=== PATIENT | male | born 1965 | race African-American/Black ===

== ENCOUNTER 2017-04-10 11:59 | Inpatient (IN) | payer OTHER ==
[2017-04-10 13:40] VITALS: BMI 19.9
--- NOTE | 2017-04-10 18:03 | HP ---
CIWA Score - CIWA Score Nausea/Vomitin-Mild Nausea/No Vomiting Muscle Tremors: 4-Moderate,w/Arms Extend Anxiety: 4-Mod. Anxious/Guarded Agitation: 4-Moderately Restless Paroxysmal Sweats: 1-Minimal Palms Moist Orientation: 0-Oriented Tacttile Disturbances: 0-None Auditory Disturbances: 0-None Visual Disturbances: 0-None Headache: 0-None Present CIWA-Ar Total Score: 14 Admission ROS BHS - HPI Chief Complaint: withdrawal sx Allergies/Adverse Reactions: Allergies Allergy/AdvReac Type Severity Reaction Status Date / Time No Known Allergies Allergy Verified 04/10/17 16:20 History of Present Illness: 52 years old male with long history of alcohol cocaine dependence has hypertension last medication "months" ago bp 161/100 begin norvasc 5 mg bid denies mental illness is admitted to detox Exam Limitations: No Limitations - Ebola screening Have you traveled outside of the country in the last 21 days: No Have you had contact with anyone from an Ebola affected area: No Have you been sick,other than usual withdrawal symptoms: No Do you have a fever: No - Review of Systems Constitutional: Chills, Loss of Appetite, Changes in sleep, Unintentional Wgt. Loss, Unexplained wgt Loss EENT: reports: Other (eye glasses) Respiratory: reports: No Symptoms reported Cardiac: reports: No Symptoms Reported GI: reports: Nausea, Poor Appetite, Poor Fluid Intake, Abdominal cramping : reports: No Symptoms Reported Musculoskeletal: reports: No Symptoms Reported Integumentary: reports: No Symptoms Reported Neuro: reports: Tremors Endocrine: reports: No Symptoms Reported Hematology: reports: No Symptoms Reported Psychiatric: reports: Judgement Intact, Mood/Affect Appropiate, Orientated x3 Other Systems: Reviewed and Negative Patient History - Patient Medical History Hx Anemia: No Hx Asthma: No Hx Chronic Obstructive Pulmonary Disease (COPD): No Hx Cancer: No Hx Cardiac Disorders: No Hx Congestive Heart Failure: No Hx Hypertension: No Hx Hypercholesterolemia: No Hx Pacemaker: No HX Cerebrovascular Accident: No Hx Seizures: No Hx Dementia: No Hx Diabetes: No Hx Gastrointestinal Disorders: No Hx Liver Disease: No Hx Genitourinary Disorders: No Hx Sexually Transmitted Disorders: No Hx Renal Disease (ESRD): No Hx Hepatitis C: No Hx Depression: No Hx Suicide Attempt: No Hx Bipolar Disorder: No Hx Schizophrenia: No - Patient Surgical History Past Surgical History: Yes Hx Neurologic Surgery: No Hx Cataract Extraction: No Hx Cardiac Surgery: No Hx Lung Surgery: No Hx Breast Surgery: No Hx Breast Biopsy: No Hx Abdominal Surgery: No Hx Appendectomy: No Hx Cholecystectomy: No Hx Genitourinary Surgery: No Hx Orthopedic Surgery: No Other Surgical History: left inguinal hernia repair in 2009 and 12/2016 Anesthesia Reaction: No - PPD History Previous Implant?: Yes Documented Results: Negative w/o proof Implanted On Prior [facility] Admission?: No PPD to be Administered?: Yes - Smoking Cessation Smoking history: Never smoked Have you smoked in the past 12 months: No Hx Chewing Tobacco Use: No Initiated information on smoking cessation: No - Substance & Tx. History Hx Alcohol Use: Yes Hx Substance Use: Yes Substance Use Type: Alcohol, Cocaine Hx Substance Use Treatment: No - Substances Abused Crack Route: Smoking Frequency: 3-6 times per week Amount used: $50-60 Age of first use: 49 Date of Last Use: 04/09/17 Alcohol-beer/cognac Route: Oral Frequency: Daily Amount used: 2-6 pks./1/2 pt. Age of first use: 13 Date of Last Use: 04/10/17 Family Disease History - Family Disease History Family Disease History: Diabetes: Mother, Other: Father () Admission Physical Exam S - Vital Signs Vital Signs: Vital Signs - 24 hr 04/10/17 13:38 Temperature 96.1 F L Pulse Rate 80 Respiratory 18 Rate Blood Pressure 161/100 - Physical General Appearance: Yes: Appropriately Dressed, Mild Distress, Alcohol on Breath , Thin, Tremorous, Irritable, Sweating, Anxious HEENTM: Yes: Hearing grossly Normal, Normal ENT Inspection, Normocephalic, Normal Voice Respiratory: Yes: Chest Non-Tender, Lungs Clear, Normal Breath Sounds, No Respiratory Distress, No Accessory Muscle Use Neck: Yes: Supple, Trachea in good position Breast: Yes: Breasts Symetrical Cardiology: Yes: Regular Rhythm, Regular Rate, S1, S2 Abdominal: Yes: Non Tender, Soft Genitourinary: Yes: Within Normal Limits Back: Yes: Normal Inspection Musculoskeletal: Yes: full range of Motion, Gait Steady Extremities: Yes: Normal Inspection, Normal Range of Motion, Non-Tender, Tremors Neurological: Yes: Fully Oriented, Alert, Motor Strength 5/5, Normal Mood/Affect , Normal Response Integumentary: Yes: Warm Lymphatic: Yes: Within Normal Limits - Diagnostic (1) Alcohol dependence with uncomplicated withdrawal Current Visit: Yes Status: Acute (2) Cocaine dependence with withdrawal Current Visit: Yes Status: Chronic (3) Hypertension Current Visit: Yes Status: Chronic Qualifiers: Hypertension type: essential hypertension Qualified Code(s): I10 - Essential (primary) hypertension Comment: begin norvasc 5 mg bid unable to remember the name of the medicaiton last dose "months" ago Cleared for Admission [facility] - Detox or Rehab [facility] Level of Care: Medically Managed Detox Regimen/Protocol: Librium [facility] Breath Alcohol Content Breath Alcohol Content: 0.011 Urine Drug Screen - Results Drug Screen Negative: No Urine Drug Screen Results: MARGARITO-Cocaine
[2017-04-10] MEDS ORDERED: guaiFENesin/D-METHORPHAN HB 10 ML UNIT-DOSE CUPS PO PRN (18:08)
[2017-04-10] MEDS ORDERED: MAGNESIUM HYDROX 2400MG/30ML ORAL SUSPENSION 30 ML CUP PO PRN (18:08)
[2017-04-10] MEDS ORDERED: diphenhydrAMINE HCL 50 MG CAPSULE PO PRN (18:08)
[2017-04-10] MEDS ORDERED: chlordiazePOXIDE HCL 25 MG CAPSULE PO PRN (18:08)
[2017-04-10] MEDS ORDERED: MENTHOL/PHENOL 1 EACH UD MM PRN (18:08)
[2017-04-10] MEDS ORDERED: P-EPHED 60MG/TRIPROLIDI 2.5MG TABLET PO PRN (18:08)
[2017-04-10] MEDS ORDERED: MAGNESIUM CITRATE 300 ML BOTTLE PO PRN (18:08)
[2017-04-10] MEDS ORDERED: LOPERAMIDE HCL 2 MG CAPSULE PO PRN (18:08)
[2017-04-10] MEDS ORDERED: MAG HYDROX/AL HYDROX/SIMETH 30 ML UNIT-DOSE CUP PO PRN (18:08)
[2017-04-10] MEDS ORDERED: hydrOXYzine PAMOATE 50 MG CAPSULE (FP) PO PRN (18:08)
[2017-04-10] MEDS ORDERED: ACETAMINOPHEN 325 MG TABLET (FP) PO PRN (18:08)
[2017-04-10] MEDS ORDERED: IBUPROFEN 400 MG TABLET (FP) PO PRN (18:08)
[2017-04-10] MEDS: amLODIPine BESYLATE 5 MG TABLET (FP) PO SCH (18:57)
[2017-04-10] MEDS: THIAMINE HCL 100 MG TABLET (FP) PO SCH (22:18)
[2017-04-10] MEDS: chlordiazePOXIDE HCL 25 MG CAPSULE PO SCH (22:19)
[2017-04-10 22:29] LABS: URINE APPEARANCE CLEAR; URINE BILIRUBIN NEGATIVE (NEGATIVE); URINE BLOOD NEGATIVE (NEGATIVE); URINE COLOR YELLOW; URINE GLUCOSE (UA) NEGATIVE (NEGATIVE); URINE KETONE NEGATIVE (NEGATIVE); URINE NITRITE NEGATIVE (NEGATIVE); URINE PROTEIN NEGATIVE (NEGATIVE); URINE UROBILINOGEN NEGATIVE E.U./dl (0.2-1.0)
[2017-04-10 22:33] LABS: URINE LEUK ESTERASE TRACE (NEGATIVE)
[2017-04-10 22:44] LABS: URINE MUCUS FEW; URINE RBC 1 /hpf (0-3); URINE WBC 7 /hpf (3-5)
[2017-04-11] MEDS: chlordiazePOXIDE HCL 25 MG CAPSULE PO SCH ×4 (06:11→22:21)
[2017-04-11 09:54] LABS: MCH 27.5 pg (25.7-33.7); MCHC 32.7 g/dl (32.0-35.9); MEAN CELL VOLUME 84.1 fl (80-96); MEAN PLT VOLUME 10.3 fl (7.5-11.1); PLATELET COUNT 129 K/MM3 (134-434); RDW 13.8 % (11.9-15.9); WHITE BLOOD COUNT 4.1 K/mm3 (4.0-10.0)
[2017-04-11] MEDS: PRENATAL VITAMINS W/ FOLIC ACID TABLET (FP) PO SCH (10:22)
[2017-04-11] MEDS: amLODIPine BESYLATE 5 MG TABLET (FP) PO SCH (10:22)
[2017-04-11 10:31] LABS: ALBUMIN 3.5 g/dl (3.4-5.0); CALCIUM 8.8 mg/dL (8.5-10.1); COCKROFT - GAULT 56.91; CREATININE 1.3 mg/dL (0.7-1.3)
[2017-04-11 10:33] LABS: BILIRUBIN,TOTAL 0.4 mg/dL (0.2-1.0); TOT PROT 7.2 g/dl (6.4-8.2)
--- NOTE | 2017-04-11 10:55 | PN ---
[facility] CIWA - CIWA Score Nausea/Vomitin-No Nausea/No Vomiting Muscle Tremors: 4-Moderate,w/Arms Extend Anxiety: 4-Mod. Anxious/Guarded Agitation: 4-Moderately Restless Paroxysmal Sweats: 1-Minimal Palms Moist Orientation: 0-Oriented Tacttile Disturbances: 3-Moderate Itch/Numb/Burn Auditory Disturbances: 0-None Visual Disturbances: 0-None Headache: 0-None Present CIWA-Ar Total Score: 16 BHS Progress Note (SOAP) Subjective: ANXIETY,SWEATS,TREMORS,INTERMITTENT SLEEP. Objective: 04/11/17 10:54 Vital Signs Temperature 97.4 F L 04/11/17 09:48 Pulse Rate 77 04/11/17 09:48 Respiratory Rate 18 04/11/17 09:48 Blood Pressure 144/97 04/11/17 09:48 O2 Sat by Pulse Oximetry (%) Laboratory Last Values WBC 4.1 K/mm3 (4.0-10.0) 04/11/17 06:00 RBC 4.76 M/mm3 (4.00-5.60) 04/11/17 06:00 Hgb 13.1 GM/dL (11.7-16.9) 04/11/17 06:00 Hct 40.1 % (35.4-49) 04/11/17 06:00 MCV 84.1 fl (80-96) 04/11/17 06:00 MCHC 32.7 g/dl (32.0-35.9) 04/11/17 06:00 RDW 13.8 % (11.9-15.9) 04/11/17 06:00 Plt Count 129 K/MM3 (134-434) L 04/11/17 06:00 MPV 10.3 fl (7.5-11.1) 04/11/17 06:00 Urine Color Yellow 04/10/17 20:30 Urine Appearance Clear 04/10/17 20:30 Urine pH 6.0 (5.0-8.0) 04/10/17 20:30 Ur Specific [place] 1.025 (1.005-1.025) 04/10/17 20:30 Urine Protein Negative (NEGATIVE) 04/10/17 20:30 Urine Glucose (UA) Negative (NEGATIVE) 04/10/17 20:30 Urine Ketones Negative (NEGATIVE) 04/10/17 20:30 Urine Blood Negative (NEGATIVE) 04/10/17 20:30 Urine Nitrite Negative (NEGATIVE) 04/10/17 20:30 Urine Bilirubin Negative (NEGATIVE) 04/10/17 20:30 Urine Urobilinogen Negative E.U./dl (0.2-1.0) 04/10/17 20:30 Ur Leukocyte Esterase Trace (NEGATIVE) H 04/10/17 20:30 Urine RBC 1 /hpf (0-3) 04/10/17 20:30 Urine WBC 7 /hpf (3-5) 04/10/17 20:30 Ur Epithelial Cells Rare /hpf (FEW) 04/10/17 20:30 Urine Mucus Few 04/10/17 20:30 Assessment: 04/11/17 10:55 WITHDRAWAL SX Plan: CONTINUE DETOX
--- NOTE | 2017-04-11 12:49 | EKG ---
Test Reason : Blood Pressure : / mmHG Vent. Rate : 075 BPM Atrial Rate : 075 BPM P-R Int : 164 ms QRS Dur : 092 ms QT Int : 394 ms P-R-T Axes : 070 057 060 degrees QTc Int : 439 ms NORMAL SINUS RHYTHM WITH SINUS ARRHYTHMIA POSSIBLE LEFT ATRIAL ENLARGEMENT LEFT VENTRICULAR HYPERTROPHY ABNORMAL ECG NO PREVIOUS ECGS AVAILABLE Confirmed by DEEPTHI RAE MD ([id number]) on 04/11/2017 12:49:03 PM Referred By: Confirmed By:DEEPTHI RAE MD
--- NOTE | 2017-04-11 12:50 | EKG ---
Test Reason : Blood Pressure : / mmHG Vent. Rate : 066 BPM Atrial Rate : 066 BPM P-R Int : 172 ms QRS Dur : 088 ms QT Int : 394 ms P-R-T Axes : 062 038 045 degrees QTc Int : 413 ms NORMAL SINUS RHYTHM NORMAL ECG WHEN COMPARED WITH ECG OF 10-APR-2017 18:01, NO SIGNIFICANT CHANGE WAS FOUND Confirmed by DEEPTHI RAE MD ([id number]) on 04/11/2017 12:49:57 PM Referred By: Confirmed By:DEEPTHI RAE MD
[2017-04-11] MEDS: THIAMINE HCL 100 MG TABLET (FP) PO SCH (22:20)
[2017-04-12] MEDS: chlordiazePOXIDE HCL 25 MG CAPSULE PO SCH ×3 (06:09→16:45)
[2017-04-12] MEDS: amLODIPine BESYLATE 5 MG TABLET (FP) PO SCH (10:40)
[2017-04-12] MEDS: PRENATAL VITAMINS W/ FOLIC ACID TABLET (FP) PO SCH (10:40)
--- NOTE | 2017-04-12 12:07 | PN ---
[facility] CIWA - CIWA Score Nausea/Vomitin-No Nausea/No Vomiting Muscle Tremors: 4-Moderate,w/Arms Extend Anxiety: 4-Mod. Anxious/Guarded Agitation: 4-Moderately Restless Paroxysmal Sweats: 1-Minimal Palms Moist Orientation: 0-Oriented Tacttile Disturbances: 3-Moderate Itch/Numb/Burn Auditory Disturbances: 0-None Visual Disturbances: 0-None Headache: 0-None Present CIWA-Ar Total Score: 16 BHS Progress Note (SOAP) Subjective: SLIGHT ANXIETY.FATIGUE. Objective: 04/12/17 12:05 Vital Signs Temperature 96.9 F L 04/12/17 09:11 Pulse Rate 67 04/12/17 09:11 Respiratory Rate 18 04/12/17 09:11 Blood Pressure 141/102 04/12/17 09:11 O2 Sat by Pulse Oximetry (%) Laboratory Last Values WBC 4.1 K/mm3 (4.0-10.0) 04/11/17 06:00 RBC 4.76 M/mm3 (4.00-5.60) 04/11/17 06:00 Hgb 13.1 GM/dL (11.7-16.9) 04/11/17 06:00 Hct 40.1 % (35.4-49) 04/11/17 06:00 MCV 84.1 fl (80-96) 04/11/17 06:00 MCHC 32.7 g/dl (32.0-35.9) 04/11/17 06:00 RDW 13.8 % (11.9-15.9) 04/11/17 06:00 Plt Count 129 K/MM3 (134-434) L 04/11/17 06:00 MPV 10.3 fl (7.5-11.1) 04/11/17 06:00 Sodium 143 mmol/L (136-145) 04/11/17 06:00 Potassium 3.7 mmol/L (3.5-5.1) 04/11/17 06:00 Chloride 108 mmol/L (98-107) H 04/11/17 06:00 Carbon Dioxide 29 mmol/L (21-32) 04/11/17 06:00 Anion Gap 6 (8-16) L 04/11/17 06:00 BUN 13 mg/dL (7-18) 04/11/17 06:00 Creatinine 1.3 mg/dL (0.7-1.3) 04/11/17 06:00 Creat Clearance w eGFR 57.75 (>60) 04/11/17 06:00 Random Glucose 89 mg/dL (74-106) 04/11/17 06:00 Calcium 8.8 mg/dL (8.5-10.1) 04/11/17 06:00 Total Bilirubin 0.4 mg/dL (0.2-1.0) 04/11/17 06:00 AST 14 U/L (15-37) L 04/11/17 06:00 ALT 16 U/L (12-78) 04/11/17 06:00 Alkaline Phosphatase 91 U/L (45-117) 04/11/17 06:00 Total Protein 7.2 g/dl (6.4-8.2) 04/11/17 06:00 Albumin 3.5 g/dl (3.4-5.0) 04/11/17 06:00 Urine Color Yellow 04/10/17 20:30 Urine Appearance Clear 04/10/17 20:30 Urine pH 6.0 (5.0-8.0) 04/10/17 20:30 Ur Specific [place] 1.025 (1.005-1.025) 04/10/17 20:30 Urine Protein Negative (NEGATIVE) 04/10/17 20:30 Urine Glucose (UA) Negative (NEGATIVE) 04/10/17 20:30 Urine Ketones Negative (NEGATIVE) 04/10/17 20:30 Urine Blood Negative (NEGATIVE) 04/10/17 20:30 Urine Nitrite Negative (NEGATIVE) 04/10/17 20:30 Urine Bilirubin Negative (NEGATIVE) 04/10/17 20:30 Urine Urobilinogen Negative E.U./dl (0.2-1.0) 04/10/17 20:30 Ur Leukocyte Esterase Trace (NEGATIVE) H 04/10/17 20:30 Urine RBC 1 /hpf (0-3) 04/10/17 20:30 Urine WBC 7 /hpf (3-5) 04/10/17 20:30 Ur Epithelial Cells Rare /hpf (FEW) 04/10/17 20:30 Urine Mucus Few 04/10/17 20:30 RPR Titer Nonreactive (NONREACTIVE) 04/11/17 06:00 LABS NOTED Assessment: 04/12/17 12:06 WITHDRAWAL SX Plan: CONTINUE DETOX
[2017-04-12 19:59] LABS: URINE APPEARANCE CLEAR; URINE BILIRUBIN NEGATIVE (NEGATIVE); URINE BLOOD NEGATIVE (NEGATIVE); URINE COLOR STRAW; URINE GLUCOSE (UA) NEGATIVE (NEGATIVE); URINE KETONE NEGATIVE (NEGATIVE); URINE LEUK ESTERASE NEGATIVE (NEGATIVE); URINE NITRITE NEGATIVE (NEGATIVE); URINE PROTEIN NEGATIVE (NEGATIVE); URINE UROBILINOGEN NEGATIVE E.U./dl (0.2-1.0)
[2017-04-12] MEDS: THIAMINE HCL 100 MG TABLET (FP) PO SCH (22:20)
[2017-04-12] MEDS: chlordiazePOXIDE 5 MG CAPSULE PO SCH (22:21)
[2017-04-13] MEDS: chlordiazePOXIDE 5 MG CAPSULE PO SCH ×3 (06:08→16:39)
[2017-04-13] MEDS: PRENATAL VITAMINS W/ FOLIC ACID TABLET (FP) PO SCH (10:21)
[2017-04-13] MEDS: amLODIPine BESYLATE 5 MG TABLET (FP) PO SCH (10:21)
--- NOTE | 2017-04-13 10:51 | PN ---
BHS Progress Note (SOAP) Subjective: DECREASED ANXIETY,SWEATS,TREMORS. NAD. Objective: 04/13/17 10:50 Last Vital Signs Temp Pulse Resp BP Pulse Ox 96.3 F L 81 20 121/82 04/13/17 09:54 04/13/17 09:54 04/13/17 09:54 04/13/17 09:54 Assessment: 04/13/17 10:50 DECREASED WITHDRAWAL SX Plan: CONTINUE DETOX
[2017-04-13] MEDS: THIAMINE HCL 100 MG TABLET (FP) PO SCH (22:15)
[2017-04-13] MEDS: chlordiazePOXIDE HCL 10 MG CAPSULE PO SCH (22:15)
[2017-04-14] MEDS: chlordiazePOXIDE HCL 10 MG CAPSULE PO SCH (05:40)
[2017-04-14] MEDS: amLODIPine BESYLATE 5 MG TABLET (FP) PO SCH (09:14)
[2017-04-14] MEDS: PRENATAL VITAMINS W/ FOLIC ACID TABLET (FP) PO SCH (09:14)
[2017-04-14 09:15] VITALS: BP 151/101; PULSE 79; TEMP 97.9
--- NOTE | 2017-04-14 15:18 | DS ---
[facility] Detox Discharge Summary Admission Date: 04/10/17 Discharge Date: 04/14/17 - History Present History: Alcohol Dependence, Cocaine Dependence Additional Comments: ADVISED PATIENT TO FOLLOW-UP WITH [employer] MANAGER AFTER DISCHARGE FROM DETOX FOR GENERAL MEDICAL ASSESSMENT. Pertinent Past History: Hypertension. - Physical Exam Results Vital Signs: Vital Signs Temperature 97.9 F 04/14/17 09:15 Pulse Rate 79 04/14/17 09:15 Respiratory Rate 18 04/14/17 09:15 Blood Pressure 151/101 04/14/17 09:15 O2 Sat by Pulse Oximetry (%) Pertinent Admission Physical Exam Findings: WITHDRAWAL SYMPTOMS. Laboratory Tests 04/10/17 04/11/17 04/11/17 20:30 06:00 06:00 WBC 4.1 RBC 4.76 Hgb 13.1 Hct 40.1 MCV 84.1 MCHC 32.7 RDW 13.8 Plt Count 129 L MPV 10.3 Sodium 143 Potassium 3.7 Chloride 108 H Carbon Dioxide 29 Anion Gap 6 L BUN 13 Creatinine 1.3 Creat Clearance w eGFR 57.75 Random Glucose 89 Calcium 8.8 Total Bilirubin 0.4 AST 14 L ALT 16 Alkaline Phosphatase 91 Total Protein 7.2 Albumin 3.5 Urine Color Yellow Urine Appearance Clear Urine pH 6.0 Ur Specific [place] 1.025 Urine Protein Negative Urine Glucose (UA) Negative Urine Ketones Negative Urine Blood Negative Urine Nitrite Negative Urine Bilirubin Negative Urine Urobilinogen Negative Ur Leukocyte Esterase Trace H Urine RBC 1 Urine WBC 7 Ur Epithelial Cells Rare Urine Mucus Few RPR Titer 04/11/17 04/12/17 06:00 14:00 WBC RBC Hgb Hct MCV MCHC RDW Plt Count MPV Sodium Potassium Chloride Carbon Dioxide Anion Gap BUN Creatinine Creat Clearance w eGFR Random Glucose Calcium Total Bilirubin AST ALT Alkaline Phosphatase Total Protein Albumin Urine Color Straw Urine Appearance Clear Urine pH 5.0 Ur Specific [place] 1.010 Urine Protein Negative Urine Glucose (UA) Negative Urine Ketones Negative Urine Blood Negative Urine Nitrite Negative Urine Bilirubin Negative Urine Urobilinogen Negative Ur Leukocyte Esterase Negative Urine RBC Urine WBC Ur Epithelial Cells Urine Mucus RPR Titer Nonreactive LABS NOTED. - Treatment Hospital Course: Detox Protocol Followed, Detoxed Safely, Responded well, Discharged Condition Good Patient has Accepted a Rehab Referral to: PATIENT ELECTING TO GO HOME - 12-STEP/ AA OUTPATIENT PROGRAMS RECOMMENDED. - Medication Discharge Medications: Ambulatory Orders NK [No Known Home Medication] 04/10/17 - Diagnosis (1) Alcohol dependence with uncomplicated withdrawal Status: Acute (2) Cocaine dependence with withdrawal Status: Acute (3) Hypertension Status: Chronic Qualifiers: Hypertension type: essential hypertension Qualified Code(s): I10 - Essential (primary) hypertension - AMA Did Patient Leave Against Medical Advice: No
== END 2017-04-14 09:34 | disposition home or self-care (01) | DRG 774 ==
LOC: YASAS 11:59 → Y3N 17:58
PROVIDERS: ADMIT Internal Medicine; ATTEND Internal Medicine
PROC: HZ2ZZZZ Detoxification Services for Substance Abuse Treatment (ICD-10-PCS; principal; 2017-04-10)
DX: F10.230 Alcohol dependence with withdrawal, uncomplicated (principal); F14.20 Cocaine dependence, uncomplicated; I10 Essential (primary) hypertension
CPT/HCPCS: 36415; 80053; 81003; 81015; 85027; 86593; 93005; 93010